=== PATIENT | female | born 1990 | race American Indian/Alaskan Native ===

== ENCOUNTER 2018-07-28 11:27 | Emergency (ER) | payer OTHER ==
[2018-07-28 11:46] VITALS: RESP 18
[2018-07-28] MEDS ORDERED: Albuterol-Ipratrop 3 mg / 0.5 (3 ml) UD INH STA (12:09)
[2018-07-28] MEDS ORDERED: Albuterol-Ipratrop 3 mg / 0.5 (3 ml) UD ONE (12:20)
--- NOTE | 2018-07-28 12:49 | RAD ---
HISTORY: cough, fever, R sided rhonchi COMPARISON: No prior. TECHNIQUE: Chest PA and lateral FINDINGS: LUNGS: No focal consolidation. 14 x 6 mm ovoid nodular opacity within the medial right upper lobe between the right 5th and 6th posterior ribs. Punctate left lower lobe calcified granuloma. Please note that chest x-ray has limited sensitivity for the detection of pulmonary masses. PLEURA: No significant pleural effusion identified. No definite pneumothorax . CARDIOVASCULAR: The cardiomediastinal silhouette appears within normal limits of size. No atherosclerotic calcification present. OSSEOUS STRUCTURES: No acute osseous abnormality identified. VISUALIZED UPPER ABDOMEN: Unremarkable. OTHER FINDINGS: Bilateral nipple rings. IMPRESSION: No focal consolidation. 14 x 6 mm indeterminate ovoid nodular opacity within the medial right upper lobe between the right 5th and 6th posterior ribs, possibly artifactual or related to end of rib. Punctate left lower lobe calcified granuloma.
--- NOTE | 2018-07-28 13:54 | C.PDOC ---
History Of Present Illness 27 year old female with a history of asthma presents to the ED for evaluation of cough for the last week. Patient reports increased wheezing and shortness of breath. She notes using her home ventolin inhaler with no improvement. Denies recent travel, fever, nausea, vomiting, diarrhea, and any other associated symptoms. Time Seen by Provider: 07/28/18 11:34 Chief Complaint (Nursing): Cough, Cold, Congestion History Per: Patient History/Exam Limitations: no limitations Onset/Duration Of Symptoms: Days Current Symptoms Are (Timing): Still Present Recent travel outside of the [place]: Yes Past Medical History Reviewed: Historical Data, Nursing Documentation, Vital Signs Vital Signs: Last Vital Signs Temp 99 F 07/28/18 11:42 Pulse 100 H 07/28/18 11:42 Resp 18 07/28/18 11:42 BP 105/74 07/28/18 11:42 Pulse Ox 98 07/28/18 11:42 - Medical History PMH: Asthma Surgical History: Appendectomy, Cholecystectomy - [facility] Procedures INJECT/INFUSE NEC (07/08/13) Family History: States: Unknown Family Hx - Social History Hx Alcohol Use: Yes Hx Substance Use: No - Immunization History Hx Influenza Vaccination: No Hx Pneumococcal Vaccination: No Review Of Systems Constitutional: Negative for: Fever Respiratory: Positive for: Cough, Shortness of Breath, Wheezing Gastrointestinal: Negative for: Nausea, Vomiting, Diarrhea Physical Exam - Physical Exam Appears: Non-toxic, No Acute Distress Skin: Normal Color, Warm, Dry Head: Atraumatic, Normacephalic Eye(s): bilateral: Normal Inspection Ear(s): Bilateral: Normal Oral Mucosa: Moist Throat: Normal, No Erythema, No Exudate Neck: Normal ROM, Supple Cardiovascular: Rhythm Regular, No Murmur Respiratory: No Rales, Rhonchi (scattered. greater in the right lung than the left. ), No Stridor, No Wheezing Neurological/Psych: Oriented x3, Normal Speech ED Course And Treatment O2 Sat by Pulse Oximetry: 98 (RA) Pulse Ox Interpretation: Normal - Other Rad CXR X-Ray: Viewed By Me, Read By Radiologist Interpretation: FINDINGS: LUNGS: No focal consolidation. 14 x 6 mm ovoid nodular opacity within the medial right upper lobe between the right 5th and 6th posterior ribs. Punctate left lower lobe calcified granuloma. Please note that chest x-ray has limited sensitivity for the detection of pulmonary masses. PLEURA: No significant pleural effusion identified. No definite pneumothorax . CARDIOVASCULAR: The cardiomediastinal silhouette appears within normal limits of size. No atherosclerotic calcification present. OSSEOUS STRUCTURES: No acute osseous abnormality identified. VISUALIZED UPPER ABDOMEN: Unremarkable. OTHER FINDINGS: Bilateral nipple rings. IMPRESSION: No focal consolidation. 14 x 6 mm indeterminate ovoid nodular opacity within the medial right upper lobe between the right 5th and 6th posterior ribs, possibly artifactual or related to end of rib. Punctate left lower lobe calcified granuloma. Medical Decision Making Medical Decision Making: Plan: --CXR --Albuterol/Nebulizer treatment. --Claritin. --Prednisone. Progress/Update: Patient stable for discharge home. Prescribed Ventolin HFA 90, Claritin, and Prednisone. Disposition - Disposition Referrals: Amira Mg MD [Staff Provider] - Disposition: HOME/ ROUTINE Disposition Time: 13:50 Condition: STABLE Additional Instructions: Follow up with the medical doctor within 1-2 days. Return if worsened. Prescriptions: Albuterol HFA [Ventolin HFA 90 mcg/actuation (8 g)] 1 puff IH Q6 #100 puff Loratadine [Claritin] 10 mg PO DAILY #10 tab predniSONE [Prednisone] 10 mg PO BID #10 tab Instructions: Acute Bronchitis, Adult (DC) Forms: [facility] ([place]risian) - Clinical Impression Clinical Impression: Bronchitis - PA / INSPECTOR DIALS / Resident Statement MD/DO has reviewed & agrees with the documentation as recorded. - Scribe Statement The provider has reviewed the documentation as recorded by the Scribe (Renita Humphries) All medical record entries made by the Scribe were at my direction and personally dictated by me. I have reviewed the chart and agree that the record accurately reflects my personal performance of the history, physical exam, medical decision making, and the department course for this patient. I have also personally directed, reviewed, and agree with the discharge instructions and disposition.
[2018-07-28 14:08] VITALS: BP 104/63; PULSE 93; TEMP 98.7
[2018-07-28 17:00] VITALS: O2SAT 98
== END 2018-07-28 14:13 | disposition home or self-care (01) ==
LOC: C.ER 11:27
DX: J40 Bronchitis, not specified as acute or chronic (principal); F17.210 Nicotine dependence, cigarettes, uncomplicated